=== PATIENT | male | born 1995 ===

== ENCOUNTER 2018-01-06 15:32 | Emergency (ER) | payer OTHER ==
[2018-01-06 15:34] VITALS: RESP 16; O2SAT 100
--- NOTE | 2018-01-06 15:51 | ED PDOC ---
Upper Extremity Pain/Injury Time Seen by Provider: 01/06/18 15:33 Chief Complaint (Nursing): Finger,Hand,&Wrist Chief Complaint (Provider): Finger,Hand,&Wrist History Per: Patient History/Exam Limitations: no limitations Onset/Duration Of Symptoms: Mins (prior to arrival) Current Symptoms Are (Timing): Still Present Additional Complaint(s): 22 year old male presents to the ED via EMS for evaluation of a right fifth digit injury. Just prior to arrival, patient states he was playing basketball when he fell on his hand, causing immediate pain. He states his pinky finger is broken because it is swollen and reminds him of a similar fracture in the past." Patient rates the pain currently as a 4/10. 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 Otherwise, (-) head injury, (-) loss of consciousness. Has no other complaints at this time. Right hand dominant. PMD: none provided Past Medical History Reviewed: Historical Data, Nursing Documentation, Vital Signs Vital Signs: Last Vital Signs Temp 98.5 F 01/06/18 15:33 Pulse 115 H 01/06/18 15:33 Resp 16 01/06/18 15:33 BP 132/73 01/06/18 15:33 Pulse Ox 100 01/06/18 15:33 - Medical History Other PMH: ADHD - Surgical History Surgical History: No Surg Hx - Family History Family History: States: Unknown Family Hx - Social History Current smoker - smoking cessation education provided: No Alcohol: None Drugs: Denies - Home Medications Home Medications: Ambulatory Orders Medication Instructions Recorded Ibuprofen [Motrin Tab] 600 mg PO Q6 #28 tab 01/06/18 - Allergies Allergies/Adverse Reactions: Allergies Allergy/AdvReac Type Severity Reaction Status Date / Time No Known Allergies Allergy Verified 01/06/18 15:33 Review of Systems ROS Statement: Except As Marked, All Systems Reviewed And Found Negative Constitutional: Negative for: Other (head injury) Musculoskeletal: Positive for: Hand Pain (right 5th digit, with swelling) Neurological: Negative for: Other (loss of consciousness) Physical Exam - Reviewed Nursing Documentation Reviewed: Yes Vital Signs Reviewed: Yes - Physical Exam Comments: GENERAL APPEARANCE: Patient is awake, alert, oriented x 3, in no acute distress. Resting comfortably. SKIN: Warm, dry; (-) cyanosis. RIGHT UPPER EXTREMITY: (+) Tenderness, (+) mild swelling to proximal and middle phalanx of right 5th digit. (-) ecchymosis. (-) obvious deformity. Sensation and capillary refill intact. (-) distal neurovascular deficit. Elbow , wrist, hand and remaining digits: (-) tenderness with FROM (+) pulses. CHEST AND RESPIRATORY: (-) rales, (-) rhonchi, (-) wheezes; breath sounds equal bilaterally. HEART AND CARDIOVASCULAR: (-) irregularity; (-) murmur, (-) gallop. NEURO AND PSYCH: Mental status as above. Gait steady, speech clear. (-) focal deficit - ECG O2 Sat by Pulse Oximetry: 100 (RA) Pulse Ox Interpretation: Normal Medical Decision Making Medical Decision Making: Time: 153 Initial Impression: acute finger pain/ injury, r/o fracture Initial Plan: --Right hand XR --Patient declined pain medications in the ED at this time. 16:11 Hand XR FINDINGS: BONES: Intraarticular fracture of the base of the 5th middle phalanx. JOINTS: Unremarkable. SOFT TISSUES: Soft tissue swelling surrounding the 5th proximal interphalangeal Becky. OTHER FINDINGS: None. IMPRESSION: Intraarticular fracture of the base of the 5th middle phalanx. 1615 Repeat HR: 98 Aluminum finger splint applied to right 5th digit by delivery tech. Placement and application verified by Jose RAMIREZ. NV intact after splint placement. On exam, patient remains AAOx3, in no acute distress. On exam, neck is supple, lungs CTA, cardiac RRR, neuro exam shows no focal findings. VSS, stable for discharge. Diagnostic results d/w the patient in great detail. Dx of acute finger pain, middle phalanx fracture of 5th digit S/P fall d/w the patient. Based on history, exam and diagnostic results plan will be for discharge and outpatient follow up. Advised to follow up with primary care physician/ortho/hand/clinic in 1-2 days without fail. Advised to take medication as prescribed. Return to the emergency room at any time for any new or worsening symptoms. Patient states he fully agrees with and understands discharge instructions. States that he agrees with the plan and disposition. Verbalized and repeated discharge instructions and plan. I have given the patient opportunity to ask any additional questions. Scribe Attestation: Documented by Mary Herr, acting as a scribe for Aliza Garcia PA-C. Provider Scribe Attestation: All medical record entries made by the Scribe were at my direction and personally dictated by me. I have reviewed the chart and agree that the record accurately reflects my personal performance of the history, physical exam, medical decision making, and the department course for this patient. I have also personally directed, reviewed, and agree with the discharge instructions and disposition. Disposition - Clinical Impression Clinical Impression: Fracture of middle phalanx of finger of right hand, Finger pain, right - Patient ED Disposition Is Patient to be Admitted: No Counseled Patient/Family Regarding: Studies Performed, Diagnosis, Need For Followup, Rx Given - Disposition Referrals: Tena Rutherford MD [Staff Provider] - Nancy Brewster MD [Staff Provider] - [facility] [Outside] Disposition: Routine/Home Disposition Time: 16:19 Condition: STABLE Additional Instructions: FOLLOW UP WITH CLINIC/HAND/ORTHO IN 1-2 DAYS WITHOUT FAIL. RETURN TO ED WITH ANY NEW OR WORSENING SYMPTOMS. Prescriptions: Ibuprofen [Motrin Tab] 600 mg PO Q6 #28 tab Instructions: Finger Fracture, Common Finger Injuries (DC) Forms: [employer] (Bruneian) Print Language: LUXEMBOURGER - POA Present On Arrival: Falls Or Trauma
--- NOTE | 2018-01-06 16:12 | RAD ---
PROCEDURE: Right Hand Radiographs. HISTORY: 5th digit injury COMPARISON: None. FINDINGS: BONES: Intraarticular fracture of the base of the 5th middle phalanx. JOINTS: Unremarkable. SOFT TISSUES: Soft tissue swelling surrounding the 5th proximal interphalangeal Becky. OTHER FINDINGS: None. IMPRESSION: Intraarticular fracture of the base of the 5th middle phalanx.
[2018-01-06 16:28] VITALS: BP 138/65; PULSE 98; TEMP 98.2
== END 2018-01-06 16:29 | disposition home or self-care (01) ==
LOC: H.ER 15:32
DX: S62.632A Displaced fracture of distal phalanx of right middle finger, initial encounter for closed fracture (principal); W19.XXXA Unspecified fall, initial encounter; Y92.310 Basketball court as the place of occurrence of the external cause; F90.9 Attention-deficit hyperactivity disorder, unspecified type